=== PATIENT | male | born 1985 | race Hispanic/Latino ===

== ENCOUNTER 2019-02-04 15:36 | Emergency (ER) | payer SELFPAY ==
--- NOTE | 2019-02-04 16:26 | RAD ---
RIGHT RIB SERIES WITH A PA VIEW OF THE CHEST INDICATION: Right-sided rib pain after fall COMPARISON: Chest radiograph dated October 28, 2012. FINDINGS: Chest radiograph: There is mild subsegmental volume loss within the right lung base Right RIBS: There is a nondisplaced anterolateral right seventh rib fracture. No displaced right-side d rib fracture is demonstrated. IMPRESSION: Nondisplaced anterolateral right seventh rib fracture. Mild subsegmental volume loss with in the right lower lobe
== END 2019-02-04 16:48 | disposition home or self-care (01) ==
LOC: ERS 15:36
DX: S22.31XA Fracture of one rib, right side, initial encounter for closed fracture (principal); S30.1XXA Contusion of abdominal wall, initial encounter; Y92.69 Other specified industrial and construction area as the place of occurrence of the external cause